=== PATIENT | female | born 1985 | race African-American/Black ===

== ENCOUNTER 2021-05-27 12:48 | Inpatient (IN) | payer MEDICAID ==
[~2021-05-27] VITALS: Ht 172.7 cm; Wt 103.7 kg
[~2021-05-27 12:48] MED LIST: ACET325T14 PO; AMLO2.5T5 PO; AMLO5TAB4 PO; HYDR-3248 PO; HYDR25TA6 PO; LISI-170 PO; LISI1TAB23 PO; LISI5TAB7 PO; METH250T3 PO; NITR100C6 PO
--- NOTE | 2021-05-27 13:08 | NUR ---
BREEDER SERVICE TECHNICIAN: [id number]
[2021-05-27 14:01] LABS: BASOPHILS % (AUTO) 1 % (0-1); EOSINOPHILS % (AUTO) 1 % (1-7); LYMPHOCYTES % (AUTO) 24 % (22-44); MEAN CORPUSCULAR HEMOGLOBIN 29.3 pg (27.0-34.8); MEAN CORPUSCULAR HGB CONC 32.6 g/dL (32.4-35.8); MEAN PLATELET VOLUME 7.3 fL (7.4-10.4); MONOCYTES % (AUTO) 7 % (2-9); NEUTROPHILS % (AUTO) 68 % (42-75); PLATELET COUNT 315 x10^3/uL (130-400); RED CELL DISTRIBUTION WIDTH 15.6 % (9.6-15.2)
--- NOTE | 2021-05-27 14:09 | NUR ---
delivery tech note: Pt called for room from lobby, no answer.
[2021-05-27 14:13] LABS: ALANINE AMINOTRANSFERASE 17 U/L (12-78); ALBUMIN 3.4 g/dL (3.4-5.0); ANION GAP 4 mmol/L (5-15); CHLORIDE 106 mmol/L (98-107); CREATININE 0.99 mg/dL (0.55-1.02)
[2021-05-27 14:15] LABS: ALKALINE PHOSPHATASE 67 U/L (45-117); BILIRUBIN,TOTAL 0.6 mg/dL (0.2-1.0); TOTAL PROTEIN 7.8 g/dL (6.4-8.2)
--- NOTE | 2021-05-27 14:24 | NUR ---
sawmill equipment operator note: Pt to room from lobby.
--- NOTE | 2021-05-27 14:33 | NUR ---
PT TO ROOM 9 W/ C/O "I GOT LITTLE SPOTS IN MY EYES, I THREW UP YESTERDAY A FEW TIMES, R EAR PAIN, CHEST PAIN ON MY LEFT BREAST, MY HEAD IS POUNDING REAL HARD, I'M WEAK, I'M DIZZY RIGHT NOW, I GOT A SORE THROAT". PT NOT VACCINATED. SX STARTED YESTERDAY. PT RESTING ON GURNEY. NADN. MONITORS APPLIED. VSS. WARM BLANKET PROVIDED. CALL LIGHT IN REACH.
--- NOTE | 2021-05-27 15:03 | NUR ---
ERP DR. CARMICHAEL AT BEDSIDE FOR EVAL.
[2021-05-27] MEDS ORDERED: ENALAPRILAT 1.25 MG/ML, 1ML ONE (15:16)
[2021-05-27] MEDS ORDERED: ENALAPRILAT 1.25 MG/ML, 2ML IV ONE (16:00)
[2021-05-27] MEDS ORDERED: SODIUM CHLORIDE FLUSH 10ML SYR IVF ONE (16:00)
--- NOTE | 2021-05-27 16:04 | NUR ---
PT BP REMAINS ELEVATED AT 197/121. ERP DR. CARMICHAEL NOTIFIED.
[2021-05-27] MEDS ORDERED: hydrALAzine 20 MG/ML, 1ML ONE ×2 (16:20→18:44)
[2021-05-27] MEDS ORDERED: hydrALAzine 20 MG/ML, 1ML IV ONE ×2 (16:30→18:30)
--- NOTE | 2021-05-27 16:40 | NUR ---
PT RESTING ON GURNEY. NADN. COLEMAN.
[2021-05-27] MEDS ORDERED: LABETALOL 5MG/ML, 20ML ONE (17:00)
[2021-05-27] MEDS ORDERED: LABETALOL 5MG/ML, 20ML IVPush ONE (17:00)
--- NOTE | 2021-05-27 17:05 | NUR ---
BP 184/111 W/ HR 64-71. PT MEDICATED PER MAR.
--- NOTE | 2021-05-27 17:41 | NUR ---
PT RESTING ON GURNEY. NADN. BP REMAINS ELEVATED. ERP DR. CARMICHAEL NOTIFIED.
--- NOTE | 2021-05-27 17:47 | NUR ---
PER ERP DR. CARMICHAEL WILL ADMIT PT TO HOSPITAL.
[2021-05-27] MEDS ORDERED: SODIUM CHLORIDE FLUSH 10ML SYR IVF PRN (18:00)
--- NOTE | 2021-05-27 18:54 | NUR ---
SMR AT BEDSIDE FOR ADMISSION.
[2021-05-27] MEDS ORDERED: DOCUSATE 100 MG CAPSULE PO PRN (19:00)
[2021-05-27] MEDS ORDERED: ENALAPRILAT 1.25 MG/ML, 2ML IVPush PRN (19:00)
--- NOTE | 2021-05-27 19:18 | NUR ---
HOSPITAL BED ORDERED FOR PT.
[2021-05-27] MEDS ORDERED: NIFE20CA PO (19:23)
[2021-05-27] MEDS ORDERED: ONDANSETRON 2MG/ML, 2ML ONE (19:29)
[2021-05-27] MEDS ORDERED: ONDANSETRON 2MG/ML, 2ML IVPush PRN (19:30)
--- NOTE | 2021-05-27 19:36 | NUR ---
PT DRY HEAVING AND NAUSEOUS IN ROOM. DOMITILA ALTAMIRANO RESTRIKE HAMMER OPERATOR NOTIFIED. NEW ORDERS PLACED. PT MEDICATED PER NOV.
--- NOTE | 2021-05-27 19:54 | NUR ---
PT MOVED FROM [facility] TO HOSPITAL BED. SILVION. MONITORS APPLIED. BP IMPROVED AT THIS TIME.
--- NOTE | 2021-05-27 20:14 | NUR ---
PT SLEEPING IN BED. NADN. BP IMPROVED SIGNIFICANTLY. VSS. PT STATES WILSON MILDLY IMPROVED.
[2021-05-27] MEDS ORDERED: LACTATED RINGERS 1,000 ML IV SCH (20:30)
--- NOTE | 2021-05-27 20:37 | NUR ---
PT RESTING ON GURNEY. NADN. COLEMAN.
--- NOTE | 2021-05-27 20:42 | NUR ---
REPORT GIVEN TO HELLEN BOBBY RN. ALL QUESTIONS ANSWERED. AWAITNG PT TRANSPORT.
[2021-05-27 21:01] VITALS: BP 135/94
[2021-05-27] MEDS ORDERED: ACETAMINOPHEN 325 MG TABLET PO ONE (22:30)
[2021-05-28 02:00] VITALS: BP 123/74
[2021-05-28] MEDS ORDERED: HYDROcodone/APAP 5/325 TABLET PO ONE (02:30)
[2021-05-28] MEDS ORDERED: HYDROcodone/APAP 5/325 TABLET ONE (02:34)
[2021-05-28 03:42] LABS: BASOPHILS % (AUTO) 1 % (0-1); EOSINOPHILS % (AUTO) 0 % (1-7); LYMPHOCYTES % (AUTO) 22 % (22-44); MEAN CORPUSCULAR HEMOGLOBIN 29.3 pg (27.0-34.8); MEAN CORPUSCULAR HGB CONC 32.7 g/dL (32.4-35.8); MEAN PLATELET VOLUME 7.3 fL (7.4-10.4); MONOCYTES % (AUTO) 7 % (2-9); NEUTROPHILS % (AUTO) 70 % (42-75); PLATELET COUNT 301 x10^3/uL (130-400); RED BLOOD COUNT 4.55 x10^6/uL (3.82-5.3); RED CELL DISTRIBUTION WIDTH 15.3 % (9.6-15.2)
[2021-05-28 03:55] LABS: ANION GAP 5 mmol/L (5-15); CALCIUM 8.7 mg/dL (8.5-10.1); CHLORIDE 107 mmol/L (98-107); CREATININE 0.87 mg/dL (0.55-1.02)
[2021-05-28 08:01] VITALS: BP 145/90
[2021-05-28] MEDS ORDERED: LOSARTAN 25MG TABLET PO SCH (09:00)
[2021-05-28] MEDS ORDERED: POTASSIUM PHOS 4.4 MEQ/ML IV ONE (09:00)
[2021-05-28] MEDS ORDERED: POTASSIUM PHOSPHATE 44 MEQ in SODIUM CHLORIDE 0.9% 500 ML IV ONE (09:30)
[2021-05-28] MEDS: AMLODIPINE 10 MG TAB PO SCH (09:55)
[2021-05-28] MEDS: ACETAMINOPHEN 325 MG TABLET PO PRN ×2 (12:01→21:27)
[2021-05-28 14:48] VITALS: BP 136/97
[2021-05-28 20:15] VITALS: BP 159/111
[2021-05-28] MEDS ORDERED: MELATONIN 5 MG TABLET ONE (21:25)
[2021-05-28] MEDS: MELATONIN 5 MG TABLET PO PRN (21:28)
[2021-05-28 21:51] VITALS: BP 143/102
[2021-05-28] MEDS ORDERED: LORazepam 0.5MG TABLET PO ONE (22:30)
[2021-05-29] VITALS (7 sets, daily range): BP systolic 130–166; BP diastolic 85–124
[2021-05-29 06:31] LABS: BASOPHILS % (AUTO) 1 % (0-1); EOSINOPHILS % (AUTO) 2 % (1-7); LYMPHOCYTES % (AUTO) 28 % (22-44); MEAN CORPUSCULAR HEMOGLOBIN 29.7 pg (27.0-34.8); MEAN CORPUSCULAR HGB CONC 33.2 g/dL (32.4-35.8); MEAN PLATELET VOLUME 7.5 fL (7.4-10.4); MONOCYTES % (AUTO) 8 % (2-9); NEUTROPHILS % (AUTO) 61 % (42-75); PLATELET COUNT 279 x10^3/uL (130-400); RED BLOOD COUNT 4.73 x10^6/uL (3.82-5.3); RED CELL DISTRIBUTION WIDTH 15.5 % (9.6-15.2)
[2021-05-29 06:38] LABS: CHLORIDE 105 mmol/L (98-107)
[2021-05-29 06:45] LABS: ANION GAP 5 mmol/L (5-15); CALCIUM 8.9 mg/dL (8.5-10.1); CREATININE 0.71 mg/dL (0.55-1.02)
[2021-05-29] MEDS ORDERED: LOSARTAN 50MG TABLET PO SCH (09:00)
[2021-05-29] MEDS: AMLODIPINE 10 MG TAB PO SCH (09:13)
[2021-05-29] MEDS ORDERED: hydrALAzine 20 MG/ML, 1ML IV PRN (11:30)
[2021-05-29] MEDS: ACETAMINOPHEN 325 MG TABLET PO PRN (20:33)
[2021-05-29] MEDS: MELATONIN 5 MG TABLET PO PRN (20:34)
[2021-05-30] MEDS: ACETAMINOPHEN 325 MG TABLET PO PRN (01:10)
[2021-05-30 01:53] VITALS: BP 138/91
[2021-05-30 06:22] LABS: BASOPHILS % (AUTO) 1 % (0-1); EOSINOPHILS % (AUTO) 1 % (1-7); LYMPHOCYTES % (AUTO) 28 % (22-44); MEAN CORPUSCULAR HEMOGLOBIN 29.4 pg (27.0-34.8); MEAN CORPUSCULAR HGB CONC 32.9 g/dL (32.4-35.8); MEAN PLATELET VOLUME 7.4 fL (7.4-10.4); MONOCYTES % (AUTO) 8 % (2-9); NEUTROPHILS % (AUTO) 63 % (42-75); PLATELET COUNT 308 x10^3/uL (130-400); RED BLOOD COUNT 4.87 x10^6/uL (3.82-5.3); RED CELL DISTRIBUTION WIDTH 15.3 % (9.6-15.2)
[2021-05-30 06:33] LABS: CALCIUM 9.2 mg/dL (8.5-10.1); CHLORIDE 105 mmol/L (98-107)
[2021-05-30 06:37] LABS: ANION GAP 6 mmol/L (5-15); CREATININE 0.67 mg/dL (0.55-1.02)
[2021-05-30 07:07] VITALS: BP 157/103
[2021-05-30] MEDS: AMLODIPINE 10 MG TAB PO SCH (08:46)
[2021-05-30] MEDS ORDERED: LOSARTAN 50MG TABLET PO SCH (09:00)
[2021-05-30] MEDS ORDERED: ACET325T26 PO (12:37)
[2021-05-30] MEDS ORDERED: LOSA100T14 PO (12:37)
[2021-05-30] MEDS ORDERED: MELA5TAB14 PO (12:37)
[2021-05-30] MEDS ORDERED: AMLO-211 PO (12:37)
[2021-05-30 13:13] VITALS: BP 146/100
== END 2021-05-30 14:50 | disposition home or self-care (01) | DRG 305 ==
LOC: ED 17:00 → EDIP 17:44 → 4WST 20:52
PROVIDERS: ADMIT Emergency Medicine; ATTEND Internal Medicine
DX: I16.9 Hypertensive crisis, unspecified (principal); F12.90 Cannabis use, unspecified, uncomplicated; Z79.899 Other long term (current) drug therapy; Z91.14 Patient's other noncompliance with medication regimen
CPT/HCPCS: 36415; 70450; 71045; 80048; 80053; 83036; 83735; 84100; 84443; 84703; 85025; 87081; 87880; 93005; 93306; 96374; 96375; 99291; G0378; J2405; J0360; J7040; J7120